=== PATIENT | female | born 1965 ===

== ENCOUNTER → 2017-01-04 | Outpatient (CLI) | payer BC ==
[~2017-01-04] MED LIST: ASPCH81X PO; ATOR-54 PO; CYAN100020 PO; METO25TA56 PO; PARO10TA PO
== END | disposition home or self-care (01) ==
LOC: C.PAPS 09:37
PROVIDERS: ATTEND Obstetrics & Gynecology
DX: Z01.419 Encounter for gynecological examination (general) (routine) without abnormal findings (principal)

== ENCOUNTER → 2017-01-11 | Day surgery (SDC) | payer BC ==
[2017-01-04 07:49] VITALS: Ht 165.1 cm; Wt 72.7 kg
[2017-01-04 18:02] LABS: BASO % 0.6 %; BASO ABS # 0.04 K/uL (0-0.2); COMPLETE YES; EOS % 2.4 %; HEMATOCRIT 34.6 % (37-47); IG% 0.3 %; LYMPH % 27.7 %; LYMPH ABS # 1.74 K/uL (1.2-3.4); MEAN CELL VOLUME 92.5 fL (80-100); MEAN CORPUSCULAR HEMOGLOBIN 32.6 pg (25-34); MEAN CORPUSCULAR HGB CONC 35.3 g/dl (32-36); MEAN PLATELET VOLUME 9.3 fL (7.4-10.4); MONO % 8.4 %; NEUT % 60.6 %; PLATELET COUNT 226 K/uL (130-400); RED BLOOD COUNT 3.74 M/uL (4.2-5.4); WHITE BLOOD COUNT 6.29 K/uL (4.8-10.8)
[~2017-01-11] VITALS: Ht 165.1 cm; Wt 72.7 kg
[~2017-01-11] MED LIST changes: +ATROPINE SULFATE 0.1 MG/ML 5ML SYR IV PRN; +DEXAMETHASONE SOD INJ 4 MG/ML VIAL ONE; +EpHEDrine SULFATE INJ 50 MG/ML AMP IV PRN; +FENTANYL CITRATE INJ 50 MCG/1 ML 2 ML VIAL IV PRN; +FENTANYL CITRATE INJ 50 MCG/1 ML 2 ML VIAL ONE; +IBUPROFEN 200 MG TAB ONE; +IBUPROFEN 600 MG TAB PO PRN; +KETOROLAC TROMETHAMINE 30 MG/ML VIAL ONE; +LACTATED RINGER'S 1000ML 1,000 ML IV SCH; +LIDOCAINE HCL 2% 2 ML VIAL (20MG/ML) ONE; +MIDAZOLAM HCL 1 MG/ML 2ML VIAL ONE; +MoRPHine SULFATE 2 MG/ML CARP IV PRN; +MoRPHine SULFATE 4 MG/ML 1 ML CARP\\VIAL IV PRN; +ONDANSETRON INJ 2 MG/ML 2 ML VIAL IV PRN; +ONDANSETRON INJ 2 MG/ML 2 ML VIAL ONE; +OXYCODONE/ACETAMINOPHEN 5-325 TAB PO PRN; +PROMETHAZINE HCL INJ 6.25 MG in SODIUM CHLORIDE 0.9% 50ML 50 ML IV PRN; +PROPOFOL IV EMULSION 10 MG/ML 20 ML VIAL IV ONE; +SODIUM CHLORIDE 0.9% 1000ML 1,000 ML IV SCH
--- NOTE | 2017-01-11 08:47 | History & Physical Bridge - [place] ---
H&P Re-Evaluation Bridge Note: I have examined the patient, reviewed the History & Physical and in the interval since the performance of the History & Physical I have noted the following changes of clinical significance: No changes noted
--- NOTE | 2017-01-11 09:22 | Discharge Instructions-SurgCtr ---
Discharge Instructions Visit Reason for Visit: Pelvic Pain Discharge Discharge Diagnosis / Problem: s/p D&C/Hysteroscopy Discharge Goals Goal(s): Specific goals Activity Recommendations Activity Limitations: per Instructions/Follow-up section Anesthesia . Post Anesthesia Instructions: If you have had General Anesthesia or IV Sedation: * Do not drive today. * Resume driving when surgeon permits. * Do not make important decisions or sign legal documents today. * Call surgeon for: 1. Temperature elevations greater than 101 degrees F. 2. Uncontrollable pain. 3. Excessive bleeding. 4. Persistent nausea and vomiting. 5. Medication intolerance (nausea, vomiting or rash). * For nausea and vomiting use only clear liquids such as: tea, soda, bouillon until nausea subsides, then gradually increase diet as tolerated. * If you have any concerns or questions, call your surgeon's office. If physician is unavailable and it is an emergency, call 911 or go to the nearest emergency room. . Instructions / Follow-Up Instructions / Follow-Up ACTIVITY RECOMMENDATIONS: * Avoid tampons, douching, hot tubs, pools, and intercourse until bleeding has stopped. * May shower as usual. * No strenuous activity for 24-48 hours. After 24-48 hours, you may do anything you feel like doing (driving and sports are okay). SPECIAL CARE INSTRUCTIONS: Special Diet: * Mild nausea may occur in the immediate post-operative period. * Take clear liquids such as tea, cola or bouillon until all nausea has subsided; you may then resume your normal diet. Special Care: * Light bleeding and vaginal spotting can last from a few days to 3-4 weeks. Call your doctor if bleeding becomes heavier than the heaviest part of your period. * Check your temperature twice a day for one week. If it goes above 100.4 degrees Fahrenheit (38.0 Celsius), notify your doctor. * Call your doctor's office for an appointment for 6 weeks after your surgery. FOLLOW-UP VISIT: Call your doctor's office for an appointment for 6 weeks after your surgery. Diet Recommendations Home Diet: no limitations, resume previous diet Procedures Procedures Performed: Dilatation and Curettage, Hysteroscopy Pending Studies Studies pending at discharge: no Medical Emergencies . Who to Call and When: Medical Emergencies: If at any time you feel your situation is an emergency, please call 911 immediately. . Non-Emergent Contact Non-Emergency issues call your: Dry Wall Plasterer . . "Provider Documentation" section prepared by Rosetta Malin.
--- NOTE | 2017-01-11 09:24 | [facility] Post Operative Brief Note ---
Immediate Operative Summary Operative Date Jan 11, 2017. Pre-Operative Diagnosis Pelvic Pain, Hematometra Post-Operative Diagnosis Same Procedure(s) Performed Dilatation and Curettage, Hysteroscopy Surgeon Dr. Malin Crutch Maker Surgeon(s) None Estimated Blood Loss 10 ML Findings uterus on exam is midline, about 6 weeks size. was about to get into the uterus with the hysteroscope. sounded to 8cm, could see the right tubal ostia, could not visualize the left because of scarring from the ablation. Fluids (cc crystalloids) 1200cc, 110deficit Specimens curretings Drains none Anesthesia lma Complication(s) None Disposition Recovery Room / PACU
--- NOTE | 2017-01-11 10:10 | Medical Student: [facility] ---
Immediate Operative Summary Operative Date Jan 11, 2017. Pre-Operative Diagnosis Low Pelvic Pain & Hematometra Post-Operative Diagnosis Same Procedure(s) Performed Dilation and Curettage & Hysteroscopy Surgeon Dr. Malin Commercial Credit Specialist Surgeon(s) None Estimated Blood Loss 10 cc Findings Uterus 6 weeks size and midline on physical exam. Uterus sounds to 8 cm. The right tubal ostia was visualized, but the left tubal ostia was not visualized d/ t to scarring from prior endometrial ablation Fluids (cc crystalloids) 1200 cc deficit 110 cc Specimens A) Endometrial Curettings Drains None Anesthesia LMA Complication(s) None Disposition Recovery Room / PACU
[2017-01-11 10:22] VITALS: BP 162/91; PULSE 55; TEMP 36.8; O2SAT 98
--- NOTE | 2017-01-11 10:29 | Anesthesia Progress Nt - [facility] ---
Anesthesia Post Op Note Date & Time Jan 11, 2017 at 10:30 Vital Signs Pain Intensity: 4 Vital Signs Past 12 Hours Date Time Temp Pulse Resp B/P Pulse Ox O2 Delivery O2 Flow Rate FiO2 01/11/17 10:22 36.8 55 16 162/91 98 Room Air 01/11/17 10:00 56 96 01/11/17 10:00 56 01/11/17 09:59 154/96 01/11/17 09:56 56 12 97 01/11/17 09:56 56 12 01/11/17 09:55 57 15 01/11/17 09:55 37.4 65 15 152/81 98 Room Air 01/11/17 09:55 57 15 98 01/11/17 09:54 152/81 01/11/17 09:50 63 14 97 01/11/17 09:50 64 14 01/11/17 09:49 162/97 01/11/17 09:45 70 16 100 01/11/17 09:45 68 16 01/11/17 09:44 132/95 01/11/17 09:40 63 22 99 01/11/17 09:40 63 22 01/11/17 09:39 143/81 01/11/17 09:35 59 11 98 01/11/17 09:35 58 11 01/11/17 09:34 111/71 01/11/17 09:30 54 8 01/11/17 09:30 53 8 98 01/11/17 09:30 37.2 65 12 131/81 96 Mask 10 01/11/17 07:11 37.0 64 18 159/99 97 Room Air Notes Mental Status: alert / awake / arousable, participated in evaluation Pt Amnestic to Procedure: Yes Nausea / Vomiting: adequately controlled Pain: adequately controlled Airway Patency, RR, SpO2: stable & adequate BP & HR: stable & adequate Hydration State: stable & adequate Anesthetic Complications: no major complications apparent
--- NOTE | 2017-01-11 10:37 | OPERATIVE REPORT ---
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 POSTOPERATIVE DIAGNOSIS: Same. PROCEDURE: D\T\C, hysteroscopy. SURGEON: Dr. Malin. ANESTHESIA: General per laryngeal mask. ESTIMATED BLOOD LOSS: 10 mL. FLUIDS: 1200 mL with a 110 mL hysteroscopic deficit. INDICATIONS: Juliana is a 51-year-old white female who had an endometrial ablation a few years ago. She has been having increasing pain over the last 6 months. An ultrasound revealed hematometra and she now presents in hopes of dilating the cervix and draining the hematometra. FINDINGS: Uterus was able to be entered and it did sound to 7 cm. I was able to dilate the uterine cervix to a #31 Carina dilator. The hysteroscope was introduced. I was able to visualize the right tubal ostia. The left tubal ostia could not be viewed because of scarring. COMPLICATIONS: None. DRAINS: None. DISPOSITION: To recovery room in stable condition. OPERATION AND FINDINGS: PROCEDURE: The patient was taken to the operating room where she was identified verbally and by bracelet. She was placed in dorsal supine position where general anesthesia was induced without difficulty. She was then placed in dorsal lithotomy position, prepped and draped in normal sterile fashion. A time-out was held identifying correct patient, procedure and positioning. The bladder was drained of urine and exam under anesthesia revealed an approximately 6-week size anteverted uterus that was mobile. There were no appreciable adnexal masses or tenderness. A weighted speculum was placed in the posterior vagina. The anterior lip of the cervix was grasped with a single tooth tenaculum. The cervix was then able to be sounded to approximately 8 cm. It was then dilated to a #25 Carina dilator. Hysteroscope was introduced with the immediate return of several mL of old blood. I was then able to clear out the uterus and visualize the endometrium. I could visualize the right tubal ostia, but I could not visualize the left tubal ostia because of scarring. The uterus was released of all blood, a curettage was performed. The uterine cervix was dilated to a #31 Carina dilator and the procedure was terminated. A [id number] suture of 3-0 Vicryl was placed into the anterior cervix where a tear from the single tooth tenaculum occurred. The procedure was terminated. All sponge, lap and needle counts were correct x2. The patient tolerated the procedure well and was taken to recovery room in stable condition. I attest to the content of the Intraoperative Record and any orders documented therein. Any exceptio ns are noted below.
== END | disposition home or self-care (01) ==
LOC: X.SURG 06:53
PROVIDERS: ATTEND Obstetrics & Gynecology
DX: N88.2 Stricture and stenosis of cervix uteri (principal); N85.7 Hematometra; Z98.890 Other specified postprocedural states; N80.9 Endometriosis, unspecified; E78.00 Pure hypercholesterolemia, unspecified; I10 Essential (primary) hypertension; I34.1 Nonrheumatic mitral (valve) prolapse; Z98.51 Tubal ligation status; Z79.82 Long term (current) use of aspirin

== ENCOUNTER → 2017-03-01 | Outpatient (CLI) | payer BC ==
[~2017-03-01] MED LIST changes: -ATROPINE SULFATE 0.1 MG/ML 5ML SYR IV PRN; -DEXAMETHASONE SOD INJ 4 MG/ML VIAL ONE; -EpHEDrine SULFATE INJ 50 MG/ML AMP IV PRN; -FENTANYL CITRATE INJ 50 MCG/1 ML 2 ML VIAL IV PRN; -FENTANYL CITRATE INJ 50 MCG/1 ML 2 ML VIAL ONE; -IBUPROFEN 200 MG TAB ONE; -IBUPROFEN 600 MG TAB PO PRN; -KETOROLAC TROMETHAMINE 30 MG/ML VIAL ONE; -LACTATED RINGER'S 1000ML 1,000 ML IV SCH; -LIDOCAINE HCL 2% 2 ML VIAL (20MG/ML) ONE; -MIDAZOLAM HCL 1 MG/ML 2ML VIAL ONE; -MoRPHine SULFATE 2 MG/ML CARP IV PRN; -MoRPHine SULFATE 4 MG/ML 1 ML CARP\\VIAL IV PRN; -ONDANSETRON INJ 2 MG/ML 2 ML VIAL IV PRN; -ONDANSETRON INJ 2 MG/ML 2 ML VIAL ONE; -OXYCODONE/ACETAMINOPHEN 5-325 TAB PO PRN; -PROMETHAZINE HCL INJ 6.25 MG in SODIUM CHLORIDE 0.9% 50ML 50 ML IV PRN; -PROPOFOL IV EMULSION 10 MG/ML 20 ML VIAL IV ONE; -SODIUM CHLORIDE 0.9% 1000ML 1,000 ML IV SCH
--- NOTE | 2017-03-05 15:16 | MAMMOGRAPHY REPORT ---
BILATERAL DIGITAL SCREENING MAMMOGRAM TOMOSYNTHESIS WITH CAD: 03/01/2017 CLINICAL HISTORY: Routine screening. Patient has no complaints. TECHNIQUE: Breast tomosynthesis in addition to standard 2D mammography was performed. Current study was also evaluated with a Computer Aided Detection (CAD) system. COMPARISON: Comparison is made to exams dated: 02/28/2016 mammogram, 02/26/2015 mammogram, 02/25/2014 m ammogram, 02/21/2013 mammogram, 01/11/2012 mammogram - [facility], and 07/12/2009 mamm ogram - [facility]. BREAST COMPOSITION: The tissue of both breasts is heterogeneously dense, which may obscure small ma sses. FINDINGS: No suspicious masses, calcifications, or areas of architectural distortion are noted in e ither breast. There has been no significant interval change compared to prior exams. Multiple small partially circumscribed and partially obscured masses are again noted bilaterally, which are decrea sed compared to prior 2014 exams and likely represent fluctuating cysts. Small nodular asymmetry in the left lateral posterior breast on the cc view has the appearance of normal overlapping fibroglan dular tissue on the tomosynthesis images. IMPRESSION: ACR BI-RADS CATEGORY 2: BENIGN There is no mammographic evidence of malignancy. A 1 year screening mammogram is recommended. The p atient will receive written notification of the results. Approximately 10% of breast cancers are not detected with mammography. A negative mammographic repor t should not delay biopsy if a clinically suggestive mass is present. Isela Watson M.D. ah/:03/03/2017 12:19:03 Manager Training: Chelita COOPER(R)(M), [facility] letter sent: Normal 1/2 BI-RADS Code: ACR BI-RADS Category 2: Benign
== END ==
LOC: C.MAMM 16:45
PROVIDERS: ATTEND Obstetrics & Gynecology
DX: Z12.31 Encounter for screening mammogram for malignant neoplasm of breast (principal)

== ENCOUNTER → 2017-07-16 | Outpatient (CLI) | payer BC ==
--- NOTE | 2017-07-16 13:49 | MAMMOGRAPHY REPORT ---
UNILATERAL LEFT DIGITAL DIAGNOSTIC MAMMOGRAM TOMOSYNTHESIS WITH CAD AND TARGETED LEFT ULTRASOUND: 06/20 CLINICAL HISTORY: 51-year-old woman with a new pea-sized palpable lump in the upper outer quadrant of the left breast that she has felt for a few weeks. No skin erythema or nipple discharge. TECHNIQUE: Left CC and MLO 2-D and tomosynthesis images were obtained. Current study was also evalua candice with a Computer Aided Detection (CAD) system. COMPARISON: Comparison is made to exams dated: 03/01/2017 mammogram, 02/28/2016 mammogram, 02/26/2015 m ammogram, 02/25/2014 mammogram, 02/21/2013 mammogram, and 01/11/2012 mammogram - [facility]. BREAST COMPOSITION: The tissue of the left breast is heterogeneously dense, which may obscure small masses. FINDINGS: A triangular skin palpable marker overlies the 1:00 posterior left breast, denoting the ar ea of pea-sized lump pointed out by the patient. No obvious new mass, asymmetry, distortion or calci fications are seen near the area of palpable concern. Further evaluation with ultrasound was perform ed. Throughout the remainder of the left breast, there are partially circumscribed masses, that are fluct uating in size comparing to prior mammograms. A 6 mm mass in the 9:00 left breast and a 5 mm mass in the approximate 12:00 anterior left breast are noted. No focal area of architectural distortion, sp iculated or irregular mass or suspicious microcalcifications are seen. Targeted ultrasound was performed in the area of palpable lump pointed out by the patient (1:00 left breast, 6 cm nipple). Additional ultrasound was performed in the approximate 12:00, retroareolar and slightly medial left breast to assess for the other partially circumscribed mammographic masses. In the area of palpable lump in the 1:00 axis, normal fibroglandular tissue is seen without a discrete solid or cystic mass. In the 12:00 periareolar left breast, there is a rounded circumscribed hypoech oic solid appearing mass measuring 4.7 x 4.5 x 5.8 mm. There is a smaller adjacent anechoic cyst mita suring 3 mm. In the 9:00 left breast, 1 cm from the nipple, there is a round nearly anechoic solid v ersus cystic masses measuring 3.7 x 3.6 x 5.2 mm. This could represent a complicated cyst or benign mass such as a fibroadenoma. Definitive characterization of the largest solid-appearing mass in the 12:00 left breast is recommended. Pending benign pathology results, could reassess the smaller hypoe choic mass in the 9:00 axis in 6 months. IMPRESSION: ACR BI-RADS CATEGORY 4: SUSPICIOUS, TARGETED ULTRASOUND ACR BI-RADS CATEGORY 4: SUSPICIO US 1. There is no new suspicious mammographic or targeted sonographic abnormality to correspond with th e palpable pea-sized lump in the 1:00 left breast, pointed out by the patient. Therefore, clinical f ollow-up is recommended, as biopsy of a clinically suspicious mass should not be precluded by negativ e imaging. 2. Incidentally noted are benign appearing circumscribed masses in the 12:00 and 9:00 axes of the le ft breast on ultrasound, thought to correlate with fluctuating mammographic masses. Although these a re most likely benign and could represent complicated cysts or fibroadenomas, definitive characteriza tion with ultrasound guided core needle biopsy of the largest solid-appearing 5 mm mass in the 12:00 periareolar left breast is recommended. Pending benign pathology results, could reassess the left br east with mammogram and targeted ultrasound in 6 months. These results and recommendations were discussed with the patient at the time of the exam. She tenta tively scheduled the left breast ultrasound-guided core biopsy prior to leaving our department. Approximately 10% of breast cancers are not detected with mammography. A negative mammographic report should not delay biopsy if a clinically suggestive mass is present. Yisel Garcia M.D. ay/:07/16/2017 11:33:36 Pipe Organ Mechanic: Chelita COOPER(Mary Ann)(M), [facility] letter sent: Abnormal 4/5 BI-RADS Code: ACR BI-RADS Category 4: Suspicious Ultrasound BI-RADS: ACR BI-RADS Category 4: Suspici ous
== END | disposition home or self-care (01) ==
LOC: C.MAMM 08:48
PROVIDERS: ATTEND Obstetrics & Gynecology
DX: N63 Unspecified lump in breast (principal); R92.2 Inconclusive mammogram

== ENCOUNTER → 2017-07-25 | Outpatient (CLI) | payer BC ==
--- NOTE | 2017-07-25 16:10 | MAMMOGRAPHY REPORT ---
UNILATERAL LEFT DIGITAL DIAGNOSTIC MAMMOGRAM TOMOSYNTHESIS: 07/25/2017 CLINICAL HISTORY: Status post aspiration of left 12:00 and left 9:00 breast masses. TECHNIQUE: Breast tomosynthesis in addition to standard 2D mammography was performed. Postprocedura l left CC and MLO tomosynthesis images including C views were obtained. COMPARISON: Comparison is made to exams dated: 07/16/2017 ultrasound, 07/16/2017 mammogram, 03/01/2017 mammogram, 02/28/2016 mammogram, 02/26/2015 mammogram, and 02/25/2014 mammogram - [facility]. BREAST COMPOSITION: The tissue of the left breast is heterogeneously dense, which may obscure small masses. FINDINGS: The previously seen circumscribed mass in the left 12:00 anterior breast is no longer evid ent status post aspiration of the left 12:00 breast cyst, indicating good correlation between the yovany mographic mass in the aspirated sonographic mass. Another circumscribed mass seen within the left 8 to 9:00 breast is no longer evident status post aspiration of the left 9:00 breast cyst, again indica ting good mammographic- sonographic correlation. IMPRESSION: ACR BI-RADS CATEGORY 2: BENIGN Two previously seen circumscribed masses in the left breast are no longer evident status post aspirat ion of the left 12:00 and 9:00 breast cysts. There is no mammographic evidence of malignancy. Return to annual mammogram screening schedule is recommended, due February 2018. Approximately 10% of breast cancers are not detected with mammography. A negative mammographic report should not delay biopsy if a clinically suggestive mass is present. Isela Watson M.D. /:07/25/2017 14:48:44 Hot Plate Plywood Press Offbearer: Princess Quispe [facility] BI-RADS Code: ACR BI-RADS Category 2: Benign
--- NOTE | 2017-07-25 16:10 | MAMMOGRAPHY REPORT ---
ASPIRATION LEFT BREAST: 07/25/2017 CLINICAL HISTORY: Left 12:00 breast mass, for which biopsy was recommended. Pending benign results, follow-up was also recommended of a left 9:00 breast mass. PATIENT CONSENT: The procedure and risks of ultrasound-guided cyst aspiration versus biopsy were disc ussed in full with the patient. Both oral and written consents were obtained. PROCEDURE DESCRIPTION: Preprocedural ultrasound demonstrates that the left 12:00 periareolar breast m ass is possibly cystic, therefore the decision was made to attempt aspiration first. With ultrasound guidance, aseptic technique, and 1% lidocaine as a local anesthetic, the mass of concern in the left 12:00 periareolar breast was aspirated to completion. Benign type pinkish yellow fluid was obtained and discarded. The smaller adjacent cyst was also aspirated during the procedure. As short interval follow-up was also recommended of a similar-appearing left 9:00 breast mass, it was offered to the patient to attempt aspiration of the mass as well. Using ultrasound guidance, asepti c technique, and 1% lidocaine as the local anesthetic, the left 9:00 breast mass also aspirated to co mpletion. Benign appearing pinkish yellow fluid was aspirated and discarded. Direct pressure was applied to the site immediately post procedure and hemostasis was achieved. The patient tolerated the procedures without complication. Post procedural unilateral mammograms were o btained; see separate dictation for details. COMPARISON: Comparison is made to exams dated: 07/16/2017 ultrasound, 07/16/2017 mammogram, 03/01/2017 mammogram, 02/28/2016 mammogram, 02/26/2015 mammogram, and 02/25/2014 mammogram - [facility]. IMPRESSION: ASPIRATION Successful ultrasound-guided aspiration of the left 12:00 periareolar breast mass as well as the left 9:00 breast mass. Given that the masses completely aspirated, they are consistent with benign cysts . The aspirated fluid was discarded. Return to annual mammogram screening schedule is recommended, due February 2018. Isela Watson M.D. /:07/25/2017 14:45:01 Shot Packer: Princess Quispe, [facility]
== END | disposition home or self-care (01) ==
LOC: C.MAMM 13:51
PROVIDERS: ATTEND Obstetrics & Gynecology
DX: N63 Unspecified lump in breast (principal)

== ENCOUNTER → 2018-03-11 | Outpatient (CLI) | payer BC ==
--- NOTE | 2018-03-12 07:39 | MAMMOGRAPHY REPORT ---
BILATERAL DIGITAL SCREENING MAMMOGRAM TOMOSYNTHESIS WITH CAD: 03/11/2018 CLINICAL HISTORY: Routine screening. Patient has no complaints. TECHNIQUE: Breast tomosynthesis in addition to standard 2D mammography was performed. Current study was also evaluated with a Computer Aided Detection (CAD) system. COMPARISON: Comparison is made to exams dated: 07/25/2017 mammogram, 07/16/2017 mammogram, 03/01/2017 ma mmogram, 02/28/2016 mammogram, 02/26/2015 mammogram, and 02/25/2014 mammogram - [facility]. BREAST COMPOSITION: The tissue of both breasts is heterogeneously dense, which may obscure small mas ses. FINDINGS: There are fluctuating circumscribed masses in the breasts, which is a typically benign mamm ographic pattern, likely representing fluctuating cysts, and concordant with cysts which were previou sly identified in each breast on ultrasound. No suspicious spiculated or irregular mass, architectur al distortion or cluster of microcalcifications is seen. IMPRESSION: ACR BI-RADS CATEGORY 1: NEGATIVE There is no mammographic evidence of malignancy. A 1 year screening mammogram is recommended. The pa tient will receive written notification of the results. Approximately 10% of breast cancers are not detected with mammography. A negative mammographic report should not delay biopsy if a clinically suggestive mass is present. Yisel Garcia M.D. ay/:03/11/2018 16:03:45 Track Welder: Chelita COHEN)(Torie), [facility] letter sent: Normal 1/2 BI-RADS Code: ACR BI-RADS Category 1: Negative
== END | disposition home or self-care (01) ==
LOC: C.MAMM 15:37
PROVIDERS: ATTEND Obstetrics & Gynecology
DX: Z12.31 Encounter for screening mammogram for malignant neoplasm of breast (principal)